=== PATIENT | male | born 1950 | race Two or more races ===

== ENCOUNTER 2022-12-16 12:15 | Inpatient (IN) | payer MEDICARE ==
[~2022-12-16] VITALS: Ht 170.2 cm; Wt 108.0 kg
[2022-12-16 12:20] VITALS: BP 143/76
[2022-12-16] MEDS ORDERED: ACETAMINOPHEN 325 MG TABLET PO PRN (14:45)
[2022-12-16] MEDS ORDERED: HydrALAZINE HCL 25 MG TABLET PO PRN (15:00)
[2022-12-16] MEDS ORDERED: TraMADol HCL 50 MG TABLET PO PRN (15:00)
[2022-12-16 20:20] VITALS: BP 117/77
[2022-12-16] MEDS: ATORVASTATIN CALCIUM 40 MG TABLET PO SCH (21:44)
[2022-12-16] MEDS: ETHYL ALCOHOL 62% ANTISEPTIC NASAL SANITIZER 0.6 ML AMPUL NASAL SCH (21:45)
[2022-12-16] MEDS: MELATONIN 5 MG TABLET PO PRN (22:08)
[2022-12-17 08:45] VITALS: BP 110/72
[2022-12-17] MEDS: ETHYL ALCOHOL 62% ANTISEPTIC NASAL SANITIZER 0.6 ML AMPUL NASAL SCH ×2 (08:53→20:22)
[2022-12-17] MEDS: ASPIRIN 81 MG CHEWABLE TABLET PO SCH (08:53)
[2022-12-17] MEDS: POLYETHYLENE GLYCOL 3350 17 GM PACKET PO SCH (08:54)
[2022-12-17 12:36] LABS: BASOPHILS % (AUTO) 0.3 % (0.0-2.0); HEMATOCRIT 47.1 % (41-53); HEMOGLOBIN 16.2 g/dL (13.5-17.5); LYMPHOCYTES # (AUTO) 1.2 K/uL (1.0-4.8); MEAN CORPUSCULAR HEMOGLOBIN 31.5 pg (26.0-34.0); MEAN CORPUSCULAR HGB CONC 34.4 G/dL (31.0-37.0); MEAN CORPUSCULAR VOLUME 92 fL (80-100); MONOCYTES # (AUTO) 0.7 K/uL (0.1-1.0); MONOCYTES % (AUTO) 7.9 % (2.0-9.0); NEUTROPHILS # (AUTO) 6.4 K/uL (1.8-7.7); NEUTROPHILS % (AUTO) 73.8 % (40.0-70.0); PLATELET COUNT (AUTO) 209 K/uL (150-450); RED BLOOD CELL COUNT(AUTO) 5.13 MIL/uL (4.50-5.90); RED CELL DISTRIBUTION WIDTH 13.8 % (11.5-14.5)
[2022-12-17 12:49] LABS: ALANINE AMINOTRANSFERASE 25 U/L (12-78); ALBUMIN 3.6 g/dL (3.4-5.0); ALKALINE PHOSPHATASE 118 U/L (46-116); ANION GAP 6 mmol/L (8-16); ASPARTATE AMINOTRANSFERASE 23 U/L (15-37); CALCIUM, TOTAL 8.7 mg/dL (8.8-10.5); CARBON DIOXIDE 31 mmol/L (22-29); CHLORIDE 101 mmol/L (98-107); CREATININE 0.79 mg/dL (0.60-1.30); GLOMERULAR FILTR. RATE CALC > 60 mL/min (>60); GLUCOSE,RANDOM 92 mg/dL (70-110); POTASSIUM 4.7 mmol/L (3.5-5.1); SODIUM SERUM 138 mmol/L (136-145); TOTAL PROTEIN, SERUM 7.1 g/dL (6.4-8.2); UREA NITROGEN, BLOOD 16 mg/dL (7-18)
[2022-12-17 20:00] VITALS: BP 106/69
[2022-12-17] MEDS: ATORVASTATIN CALCIUM 40 MG TABLET PO SCH (20:22)
[2022-12-17] MEDS: MELATONIN 5 MG TABLET PO PRN (23:07)
[2022-12-18 08:05] VITALS: BP 137/72
[2022-12-18] MEDS: ETHYL ALCOHOL 62% ANTISEPTIC NASAL SANITIZER 0.6 ML AMPUL NASAL SCH ×2 (08:05→20:30)
[2022-12-18] MEDS: POLYETHYLENE GLYCOL 3350 17 GM PACKET PO SCH (08:05)
[2022-12-18] MEDS: ASPIRIN 81 MG CHEWABLE TABLET PO SCH (08:05)
[2022-12-18] MEDS: ATORVASTATIN CALCIUM 40 MG TABLET PO SCH (20:30)
[2022-12-18] MEDS: MELATONIN 5 MG TABLET PO PRN (20:31)
[2022-12-18 21:00] VITALS: BP 130/62
[2022-12-19] MEDS: ASPIRIN 81 MG CHEWABLE TABLET PO SCH (07:47)
[2022-12-19] MEDS: ETHYL ALCOHOL 62% ANTISEPTIC NASAL SANITIZER 0.6 ML AMPUL NASAL SCH ×2 (07:47→21:10)
[2022-12-19] MEDS: POLYETHYLENE GLYCOL 3350 17 GM PACKET PO SCH (07:47)
[2022-12-19 08:05] VITALS: BP 134/80
[2022-12-19 20:00] VITALS: BP 140/76
[2022-12-19] MEDS: MELATONIN 5 MG TABLET PO PRN (21:10)
[2022-12-19] MEDS: ATORVASTATIN CALCIUM 40 MG TABLET PO SCH (21:10)
[2022-12-20 08:00] VITALS: BP 140/86
[2022-12-20] MEDS: ASPIRIN 81 MG CHEWABLE TABLET PO SCH (08:19)
[2022-12-20] MEDS: POLYETHYLENE GLYCOL 3350 17 GM PACKET PO SCH (08:19)
[2022-12-20] MEDS: ETHYL ALCOHOL 62% ANTISEPTIC NASAL SANITIZER 0.6 ML AMPUL NASAL SCH ×2 (08:19→21:23)
[2022-12-20 14:53] LABS: APPEARANCE,URINE CLEAR (CLEAR); BILIRUBIN,URINE NEGATIVE (NEGATIVE); GLUCOSE, URINE (UA) NEGATIVE (NEGATIVE); KETONES,URINE NEGATIVE (NEGATIVE); LEUKOCYTE ESTERASE ,URINE TRACE (NEGATIVE); NITRATE,URINE NEGATIVE (NEGATIVE); OCCULT BLOOD,URINE NEGATIVE (NEGATIVE); PROTEIN,URINE TRACE mg/dL (NEGATIVE); SPECIFIC GRAVITIY, URINE 1.024 (1.003-1.030)
[2022-12-20 15:26] LABS: BACTERIA,URINE None Seen /HPF (None Seen); RBC,URINE None Seen /HPF (0-2); SQUAMOUS EPITHELIAL CELL,UR Few /LPF (None Seen)
[2022-12-20 20:20] VITALS: BP 150/85
[2022-12-20] MEDS: ATORVASTATIN CALCIUM 40 MG TABLET PO SCH (21:23)
[2022-12-20] MEDS: MELATONIN 5 MG TABLET PO PRN (21:26)
[2022-12-21] VITALS: BP 147/70
[2022-12-21 08:01] VITALS: BP 156/93
[2022-12-21] MEDS: ETHYL ALCOHOL 62% ANTISEPTIC NASAL SANITIZER 0.6 ML AMPUL NASAL SCH ×2 (08:11→21:01)
[2022-12-21] MEDS: ASPIRIN 81 MG CHEWABLE TABLET PO SCH (08:11)
[2022-12-21] MEDS: POLYETHYLENE GLYCOL 3350 17 GM PACKET PO SCH (08:11)
[2022-12-21 09:15] VITALS: BP 132/78
[2022-12-21 14:10] VITALS: BP 145/85
[2022-12-21 20:15] VITALS: BP 146/77
[2022-12-21] MEDS: MELATONIN 5 MG TABLET PO PRN (21:00)
[2022-12-21] MEDS: ATORVASTATIN CALCIUM 40 MG TABLET PO SCH (21:00)
[2022-12-21] MEDS: TAMSULOSIN HCL 0.4 MG CAPSULE PO SCH (21:00)
[2022-12-22 08:01] VITALS: BP 134/78
[2022-12-22] MEDS: POLYETHYLENE GLYCOL 3350 17 GM PACKET PO SCH (08:09)
[2022-12-22] MEDS: ASPIRIN 81 MG CHEWABLE TABLET PO SCH (08:09)
[2022-12-22] MEDS: ETHYL ALCOHOL 62% ANTISEPTIC NASAL SANITIZER 0.6 ML AMPUL NASAL SCH ×2 (08:10→20:36)
[2022-12-22] MEDS: ATORVASTATIN CALCIUM 40 MG TABLET PO SCH (20:36)
[2022-12-22] MEDS: MELATONIN 5 MG TABLET PO PRN (20:36)
[2022-12-22] MEDS: TAMSULOSIN HCL 0.4 MG CAPSULE PO SCH (20:37)
[2022-12-22 21:00] VITALS: BP 148/81
[2022-12-23] MEDS: POLYETHYLENE GLYCOL 3350 17 GM PACKET PO SCH (07:49)
[2022-12-23] MEDS: ASPIRIN 81 MG CHEWABLE TABLET PO SCH (07:49)
[2022-12-23] MEDS: ETHYL ALCOHOL 62% ANTISEPTIC NASAL SANITIZER 0.6 ML AMPUL NASAL SCH ×2 (07:49→20:24)
[2022-12-23 09:03] VITALS: BP 128/72
[2022-12-23 19:59] VITALS: BP 137/79
[2022-12-23] MEDS: ATORVASTATIN CALCIUM 40 MG TABLET PO SCH (20:24)
[2022-12-23] MEDS: TAMSULOSIN HCL 0.4 MG CAPSULE PO SCH (20:24)
[2022-12-23] MEDS: MELATONIN 5 MG TABLET PO PRN (21:04)
[2022-12-24 08:05] VITALS: BP 123/83
[2022-12-24] MEDS: ASPIRIN 81 MG CHEWABLE TABLET PO SCH (08:17)
[2022-12-24] MEDS: ETHYL ALCOHOL 62% ANTISEPTIC NASAL SANITIZER 0.6 ML AMPUL NASAL SCH ×2 (08:17→20:28)
[2022-12-24] MEDS: POLYETHYLENE GLYCOL 3350 17 GM PACKET PO SCH (08:17)
[2022-12-24 10:45] LABS: APPEARANCE,URINE CLEAR (CLEAR); BILIRUBIN,URINE NEGATIVE (NEGATIVE); GLUCOSE, URINE (UA) NEGATIVE (NEGATIVE); KETONES,URINE NEGATIVE (NEGATIVE); LEUKOCYTE ESTERASE ,URINE MODERATE (NEGATIVE); NITRATE,URINE NEGATIVE (NEGATIVE); OCCULT BLOOD,URINE TRACE (NEGATIVE); PROTEIN,URINE TRACE mg/dL (NEGATIVE); SPECIFIC GRAVITIY, URINE 1.025 (1.003-1.030)
[2022-12-24 11:10] LABS: BACTERIA,URINE Few /HPF (None Seen); RBC,URINE 0-2 /HPF (0-2); SQUAMOUS EPITHELIAL CELL,UR Few /LPF (None Seen)
[2022-12-24 20:05] VITALS: BP 134/73
[2022-12-24] MEDS: ATORVASTATIN CALCIUM 40 MG TABLET PO SCH (20:28)
[2022-12-24] MEDS: MELATONIN 5 MG TABLET PO PRN (20:28)
[2022-12-24] MEDS: TAMSULOSIN HCL 0.4 MG CAPSULE PO SCH (20:28)
[2022-12-25 08:05] VITALS: BP 126/60
[2022-12-25] MEDS: ASPIRIN 81 MG CHEWABLE TABLET PO SCH (08:28)
[2022-12-25] MEDS: ETHYL ALCOHOL 62% ANTISEPTIC NASAL SANITIZER 0.6 ML AMPUL NASAL SCH ×2 (08:28→20:25)
[2022-12-25] MEDS: POLYETHYLENE GLYCOL 3350 17 GM PACKET PO SCH (08:28)
[2022-12-25 19:35] VITALS: BP 149/89
[2022-12-25] MEDS: ATORVASTATIN CALCIUM 40 MG TABLET PO SCH (20:24)
[2022-12-25] MEDS: MELATONIN 5 MG TABLET PO PRN (20:25)
[2022-12-25] MEDS: TAMSULOSIN HCL 0.4 MG CAPSULE PO SCH (20:25)
[2022-12-26] MEDS: POLYETHYLENE GLYCOL 3350 17 GM PACKET PO SCH ×2 (08:23→08:26)
[2022-12-26] MEDS: ETHYL ALCOHOL 62% ANTISEPTIC NASAL SANITIZER 0.6 ML AMPUL NASAL SCH ×2 (08:23→20:29)
[2022-12-26] MEDS: ASPIRIN 81 MG CHEWABLE TABLET PO SCH (08:23)
[2022-12-26 09:23] VITALS: BP 120/68
[2022-12-26] MEDS: MELATONIN 5 MG TABLET PO PRN (20:30)
[2022-12-26] MEDS: TAMSULOSIN HCL 0.4 MG CAPSULE PO SCH (20:30)
[2022-12-26] MEDS: ATORVASTATIN CALCIUM 40 MG TABLET PO SCH (20:30)
[2022-12-26 21:00] VITALS: BP 152/89
[2022-12-27] MEDS: ETHYL ALCOHOL 62% ANTISEPTIC NASAL SANITIZER 0.6 ML AMPUL NASAL SCH ×2 (08:14→21:03)
[2022-12-27] MEDS: POLYETHYLENE GLYCOL 3350 17 GM PACKET PO SCH (08:14)
[2022-12-27] MEDS: ASPIRIN 81 MG CHEWABLE TABLET PO SCH (08:14)
[2022-12-27 09:33] VITALS: BP 122/67
[2022-12-27] MEDS ORDERED: POLY17PO PO (10:13)
[2022-12-27] MEDS ORDERED: ATOR40TA71 PO (10:13)
[2022-12-27] MEDS ORDERED: TAMS-13 PO (10:13)
[2022-12-27] MEDS ORDERED: ASPI81 PO (10:13)
[2022-12-27 21:00] VITALS: BP 149/90
[2022-12-27] MEDS: TAMSULOSIN HCL 0.4 MG CAPSULE PO SCH (21:03)
[2022-12-27] MEDS: NYSTATIN 30 GM CREAM TP SCH (21:04)
[2022-12-27] MEDS: ATORVASTATIN CALCIUM 40 MG TABLET PO SCH (21:04)
[2022-12-27] MEDS: MELATONIN 5 MG TABLET PO PRN (21:05)
[2022-12-28 08:20] VITALS: BP 122/76
[2022-12-28] MEDS: ASPIRIN 81 MG CHEWABLE TABLET PO SCH (08:24)
[2022-12-28] MEDS: NYSTATIN 30 GM CREAM TP SCH (08:29)
[2022-12-28] MEDS ORDERED: SULF-261 PO (10:00)
[2022-12-28] MEDS ORDERED: SULFAMETHOX/TRIMETH DS 800-160 MG/TABLET PO SCH (10:45)
[2022-12-28] MEDS: ETHYL ALCOHOL 62% ANTISEPTIC NASAL SANITIZER 0.6 ML AMPUL NASAL SCH (10:56)
[2022-12-28] MEDS: POLYETHYLENE GLYCOL 3350 17 GM PACKET PO SCH (10:59)
[2022-12-28 11:36] VITALS: BP 122/76
== END 2022-12-28 12:15 | disposition home or self-care (01) | DRG 56 ==
LOC: 2WR 12:15
PROVIDERS: ADMIT Physical Medicine & Rehabilitation; ATTEND Physical Medicine & Rehabilitation
DX: I69.354 Hemiplegia and hemiparesis following cerebral infarction affecting left non-dominant side (principal); I63.9 Cerebral infarction, unspecified; N39.0 Urinary tract infection, site not specified; R41.3 Other amnesia; M19.90 Unspecified osteoarthritis, unspecified site; I10 Essential (primary) hypertension; E78.1 Pure hyperglyceridemia; Z96.641 Presence of right artificial hip joint; Z96.652 Presence of left artificial knee joint; R32 Unspecified urinary incontinence; Z74.1 Need for assistance with personal care; E66.9 Obesity, unspecified; R35.1 Nocturia; N40.0 Benign prostatic hyperplasia without lower urinary tract symptoms; Z68.37 Body mass index [BMI] 37.0-37.9, adult
CPT/HCPCS: 80053; 81001; 84153; 85025; 87081; 87086; 87186; 92507; 92523; 92610; 93970; 97110; 97112; 97116; 97150; 97162; 97166; 97530; 97535; 99366; Q9967

== ENCOUNTER 2023-12-06 18:19 | Inpatient (IN) | payer MEDICARE ==
[~2023-12-06] VITALS: Ht 172.7 cm; Wt 90.0 kg
[~2023-12-06 18:19] MED LIST: ASPI81 PO; ATOR40TA71 PO; POLY17PO11 PO; SULF-261 PO; TAMS0.4C94 PO
[2023-12-06] MEDS ORDERED: APIX5TAB PO (20:15)
[2023-12-06] MEDS ORDERED: ACYC400T20 PO (20:15)
[2023-12-06] MEDS ORDERED: GABA-1181 PO (20:15)
[2023-12-06] MEDS ORDERED: METO25XL PO (20:15)
[2023-12-06 20:18] LABS: BASOPHILS % (AUTO) 0.4 % (0.0-2.0); EOSINOPHILS % (AUTO) 0.1 % (1.0-6.0); HEMOGLOBIN 15.8 g/dL (13.5-17.5); LYMPHOCYTES # (AUTO) 0.9 K/uL (1.0-4.8); LYMPHOCYTES % (AUTO) 7.8 % (22.0-44.0); MEAN CORPUSCULAR HEMOGLOBIN 30.5 pg (26.0-34.0); MEAN CORPUSCULAR HGB CONC 33.6 G/dL (31.0-37.0); MEAN CORPUSCULAR VOLUME 91 fL (80-100); MONOCYTES # (AUTO) 0.7 K/uL (0.1-1.0); MONOCYTES % (AUTO) 6.4 % (2.0-9.0); NEUTROPHILS # (AUTO) 9.9 K/uL (1.8-7.7); PLATELET COUNT (AUTO) 258 K/uL (150-450); RED BLOOD CELL COUNT(AUTO) 5.17 MIL/uL (4.50-5.90); RED CELL DISTRIBUTION WIDTH 13.3 % (11.5-14.5); WHITE BLOOD COUNT (AUTO) 11.6 K/uL (4.5-11.0)
[2023-12-06 20:27] LABS: ANION GAP 9 mmol/L (8-16); CALCIUM, TOTAL 9.4 mg/dL (8.8-10.5); CARBON DIOXIDE 27 mmol/L (22-29); CHLORIDE 96 mmol/L (98-107); CREATININE 0.72 mg/dL (0.60-1.30); GLOMERULAR FILTR. RATE CALC > 60 mL/min (>60); GLUCOSE,RANDOM 112 mg/dL (70-110); SODIUM SERUM 132 mmol/L (136-145); UREA NITROGEN, BLOOD 15 mg/dL (7-18)
[2023-12-06 20:28] LABS: NEUTROPHILS % (AUTO) 85.3 % (40.0-70.0)
[2023-12-06 20:33] LABS: ALANINE AMINOTRANSFERASE 47 U/L (12-78); ALKALINE PHOSPHATASE 112 U/L (46-116); ASPARTATE AMINOTRANSFERASE 21 U/L (15-37); BILIRUBIN,TOTAL 1.8 mg/dL (0.1-1.0); TOTAL PROTEIN, SERUM 8.3 g/dL (6.4-8.2)
[2023-12-06] MEDS: MORPHINE SULFATE 2 MG/ML SYRINGE IVP ONE (21:20)
[2023-12-06] MEDS ORDERED: GADOTERATE MEGLUMINE 10 MMOL/20 ML VIAL IVP ONE (21:44)
[2023-12-06 21:54] LABS: TROPONIN I-HIGH SENSITIVITY 12 ng/L (<76)
[2023-12-06 22:46] LABS: APPEARANCE,URINE CLEAR (CLEAR); BILIRUBIN,URINE NEGATIVE (NEGATIVE); COLOR,URINE LIGHT YELLOW (YELLOW); GLUCOSE, URINE (UA) NEGATIVE (NEGATIVE); KETONES,URINE TRACE mg/dL (NEGATIVE); LEUKOCYTE ESTERASE ,URINE NEGATIVE (NEGATIVE); NITRATE,URINE NEGATIVE (NEGATIVE); OCCULT BLOOD,URINE LARGE (NEGATIVE); PH,URINE 6.5 (5.0-8.0); PROTEIN,URINE TRACE mg/dL (NEGATIVE); SPECIFIC GRAVITIY, URINE 1.015 (1.003-1.030); UROBILINOGEN,URINE <=1.0 mg/dL (<=1.0)
[2023-12-06 22:51] LABS: RBC,URINE 26-50 /HPF (0-2); WBC,URINE 0-2 /HPF (0-5)
[2023-12-06 22:52] LABS: BACTERIA,URINE None Seen /HPF (None Seen)
[2023-12-07 02:25] LABS: COVID AG,FIA SOURCE NASAL SWAB
[2023-12-07 02:37] LABS: SARS-COV2 (COVID) ANTIGEN,FIA Negative (Negative)
[2023-12-07] MEDS ORDERED: ONDANSETRON HCL 4 MG/2 ML VIAL IVP PRN (03:00)
[2023-12-07] MEDS: PRAMOXINE HCL/CALAMINE 177 ML BOTTLE TP SCH (03:57)
[2023-12-07 04:00] VITALS: BP 153/100; PULSE 90; RESP 20; TEMP 98
[2023-12-07] MEDS: HEPARIN SODIUM,PORCINE 5,000 UNITS/ML VIAL SQ SCH (08:00)
[2023-12-07] MEDS: DOCUSATE SODIUM 100 MG CAPSULE PO SCH (08:51)
[2023-12-07 09:52] VITALS: BP 171/115; PULSE 108; RESP 20; TEMP 100.2
[2023-12-07] MEDS: CloNIDine HCL 0.1 MG TABLET PO ONE (12:48)
[2023-12-07] MEDS: ACETAMINOPHEN 325 MG TABLET PO PRN (14:00)
[2023-12-07] MEDS: PREGABALIN 75 MG CAPSULE PO SCH (16:20)
[2023-12-07] MEDS: ACYCLOVIR 800 MG TABLET PO SCH (16:20)
[2023-12-07 19:25] VITALS: BP 184/110; PULSE 85; RESP 18; TEMP 97.6
[2023-12-07] MEDS: LABETALOL HCL 200 MG TABLET PO SCH (20:15)
[2023-12-07] MEDS: NITROGLYCERIN 0.6 MG SUBLINGUAL TABLET #100 SL ONE (20:15)
[2023-12-07] MEDS: AmLODIPine BESYLATE 10 MG TABLET PO SCH (20:17)
[2023-12-07 21:26] VITALS: BP 142/86; PULSE 65; RESP 18
[2023-12-07] MEDS ORDERED: HEPARIN SODIUM,PORCINE 5,000 UNITS/ML VIAL IVP ONE (22:15)
[2023-12-07] MEDS ORDERED: HEPARIN SODIUM,PORCINE 5,000 UNITS/ML VIAL IVP PRN ×2 (22:15)
[2023-12-07 22:27] LABS: BASOPHILS % (AUTO) 0.4 % (0.0-2.0); EOSINOPHILS % (AUTO) 1.1 % (1.0-6.0); HEMATOCRIT 47.3 % (41-53); HEMOGLOBIN 15.9 g/dL (13.5-17.5); LYMPHOCYTES # (AUTO) 0.9 K/uL (1.0-4.8); LYMPHOCYTES % (AUTO) 8.3 % (22.0-44.0); MEAN CORPUSCULAR HEMOGLOBIN 30.4 pg (26.0-34.0); MEAN CORPUSCULAR HGB CONC 33.6 G/dL (31.0-37.0); MEAN CORPUSCULAR VOLUME 91 fL (80-100); MONOCYTES # (AUTO) 0.9 K/uL (0.1-1.0); MONOCYTES % (AUTO) 8.1 % (2.0-9.0); NEUTROPHILS # (AUTO) 9.2 K/uL (1.8-7.7); NEUTROPHILS % (AUTO) 82.1 % (40.0-70.0); PLATELET COUNT (AUTO) 250 K/uL (150-450); RED BLOOD CELL COUNT(AUTO) 5.23 MIL/uL (4.50-5.90); RED CELL DISTRIBUTION WIDTH 13.5 % (11.5-14.5); WHITE BLOOD COUNT (AUTO) 11.2 K/uL (4.5-11.0)
[2023-12-07 22:41] LABS: INR 1.3 (0.9-1.1); PROTHROMBIN TIME 13.5 SEC (9.4-11.6)
[2023-12-07 23:00] VITALS: BP 125/72; PULSE 86
[2023-12-07] MEDS: NITROGLYCERIN 2% (1 GM=INCH) OINTMENT PACKET TP SCH (23:13)
[2023-12-07] MEDS: HEPARIN SODIUM 25000 UNITS/D5W 250 ML IV PRN (23:22)
[2023-12-08] VITALS: BP 115/62; PULSE 70; RESP 20
[2023-12-08] MEDS: HALOPERIDOL LACTATE 5 MG/ML VIAL IM ONE (00:26)
[2023-12-08] MEDS ORDERED: NiCARDipine HCL 25 MG in SODIUM CHLORIDE 0.9% 240 ML IV PRN (02:15)
[2023-12-08 02:24] LABS: INR 1.3 (0.9-1.1); PROTHROMBIN TIME 13.1 SEC (9.4-11.6)
[2023-12-08] MEDS: PROTAMINE SULFATE 10 MG/ML 5 ML VIAL IVP ONE (02:47)
[2023-12-08] MEDS ORDERED: SODIUM CHLORIDE 0.9% 250 ML IV ONE (03:14)
[2023-12-08] MEDS: LevETIRAcetam 1,500 MG in DEXTROSE 5%-WATER 100 ML IV ONE (03:25)
[2023-12-08 04:00] VITALS: BP 104/43; PULSE 71; RESP 22; TEMP 98.3
[2023-12-08 06:19] LABS: BASOPHILS % (AUTO) 0.6 % (0.0-2.0); EOSINOPHILS % (AUTO) 2.3 % (1.0-6.0); HEMATOCRIT 45.7 % (41-53); HEMOGLOBIN 15.3 g/dL (13.5-17.5); LYMPHOCYTES # (AUTO) 1.1 K/uL (1.0-4.8); LYMPHOCYTES % (AUTO) 10.5 % (22.0-44.0); MEAN CORPUSCULAR HEMOGLOBIN 30.5 pg (26.0-34.0); MEAN CORPUSCULAR HGB CONC 33.5 G/dL (31.0-37.0); MEAN CORPUSCULAR VOLUME 91 fL (80-100); MONOCYTES # (AUTO) 0.8 K/uL (0.1-1.0); NEUTROPHILS # (AUTO) 7.9 K/uL (1.8-7.7); NEUTROPHILS % (AUTO) 78.6 % (40.0-70.0); PLATELET COUNT (AUTO) 247 K/uL (150-450); RED BLOOD CELL COUNT(AUTO) 5.03 MIL/uL (4.50-5.90); RED CELL DISTRIBUTION WIDTH 13.6 % (11.5-14.5); WHITE BLOOD COUNT (AUTO) 10.1 K/uL (4.5-11.0)
[2023-12-08 06:33] LABS: ANION GAP 5 mmol/L (8-16); CALCIUM, TOTAL 8.8 mg/dL (8.8-10.5); CARBON DIOXIDE 27 mmol/L (22-29); CHLORIDE 99 mmol/L (98-107); CREATININE 0.58 mg/dL (0.60-1.30); GLOMERULAR FILTR. RATE CALC > 60 mL/min (>60); GLUCOSE,RANDOM 126 mg/dL (70-110); POTASSIUM 3.5 mmol/L (3.5-5.1); SODIUM SERUM 131 mmol/L (136-145); UREA NITROGEN, BLOOD 16 mg/dL (7-18)
[2023-12-08] MEDS: LevETIRAcetam 500 MG in DEXTROSE 5%-WATER 100 ML IV SCH (06:40)
[2023-12-08] MEDS ORDERED: CARBIDOPA/LEVODOPA 25-100 MG TABLET PO SCH (09:00)
[2023-12-08] MEDS ORDERED: METOPROLOL SUCCINATE 25 MG ER TABLET PO SCH (09:00)
[2023-12-08] MEDS ORDERED: POLYETHYLENE GLYCOL 3350 17 GM PACKET PO SCH (09:00)
[2023-12-08] MEDS ORDERED: GABAPENTIN 300 MG CAPSULE PO SCH (09:00)
[2023-12-08] MEDS ORDERED: ATORVASTATIN CALCIUM 40 MG TABLET PO SCH (21:00)
== END 2023-12-08 08:15 | disposition short-term general hospital (02) | DRG 65 ==
LOC: EMS 18:19 → 6N 12-07 02:59 → ICU 12-08 02:00
PROVIDERS: ADMIT Internal Medicine; ATTEND Internal Medicine
DX: I60.9 Nontraumatic subarachnoid hemorrhage, unspecified (principal); E87.1 Hypo-osmolality and hyponatremia; G95.29 Other cord compression; R32 Unspecified urinary incontinence; B02.9 Zoster without complications; I16.0 Hypertensive urgency; M54.16 Radiculopathy, lumbar region; G89.29 Other chronic pain; M51.36 Other intervertebral disc degeneration, lumbar region; M48.061 Spinal stenosis, lumbar region without neurogenic claudication; Z20.822 Contact with and (suspected) exposure to COVID-19; L08.9 Local infection of the skin and subcutaneous tissue, unspecified; I48.91 Unspecified atrial fibrillation; R31.29 Other microscopic hematuria; Z79.01 Long term (current) use of anticoagulants; Z79.899 Other long term (current) drug therapy; I69.334 Monoplegia of upper limb following cerebral infarction affecting left non-dominant side
CPT/HCPCS: 70450; 72158; 80048; 80053; 81001; 82550; 83735; 84484; 85025; 85610; 85730; 92610; 93005; 97163; 97166; 97530; 97535; 99291; J0712; J1630; J1644; J2270; J2720; J3490; J7050; J7060